=== PATIENT | male | born 1970 | race Caucasian/White ===

== ENCOUNTER → 2017-10-31 | Outpatient (CLI) | payer OTHER | END | disposition home or self-care (01) | LOC: RAD 15:53 | PROVIDERS: ATTEND Orthopaedic Surgery | DX: S72.21XD Displaced subtrochanteric fracture of right femur, subsequent encounter for closed fracture with routine healing (principal); X58.XXXD Exposure to other specified factors, subsequent encounter ==

== ENCOUNTER 2017-12-30 06:52 | Inpatient (IN) | payer OTHER ==
[~2017-12-30] VITALS: Ht 167.6 cm; Wt 123.0 kg
[2017-12-30] MEDS ORDERED: OXYC5CAP2 PO (07:30)
[2017-12-30] MEDS ORDERED: ASPI-650 PO (07:30)
[2017-12-30] MEDS ORDERED: PREG100C PO (07:30)
[2017-12-30] MEDS ORDERED: LISI-170 PO (07:30)
[2017-12-30] MEDS ORDERED: OXYC10TA6 PO (07:30)
[2017-12-30 07:31] VITALS: BP 155/97
[2017-12-30] MEDS ORDERED: LACTATED RINGERS 1,000 ML IV SCH (07:32)
[2017-12-30] MEDS ORDERED: MIDAZOLAM 1 MG/ML, 2ML ONE (07:37)
[2017-12-30] MEDS ORDERED: FENTANYL PF 250 MCG/5ML ONE (07:37)
[2017-12-30] MEDS ORDERED: ACETAMINOPHEN 500 MG TABLET PO ONE (08:00)
[2017-12-30] MEDS ORDERED: GABAPENTIN 300 MG CAPSULE PO ONE (08:00)
[2017-12-30] MEDS ORDERED: BUPIVACAINE/PF-EPI 0.5% 1:200K ONE (08:04)
[2017-12-30] MEDS ORDERED: SCOPOLAMINE PATCH, 1.5MG PATCH.TD72 TD ONE ×2 (08:10)
[2017-12-30] MEDS ORDERED: GABAPENTIN 300 MG CAPSULE ONE (08:10)
[2017-12-30] MEDS ORDERED: OxyconTIN ER 10 MG TAB.ER ONE ×2 (08:10)
[2017-12-30] MEDS ORDERED: ACETAMINOPHEN 500 MG TABLET ONE (08:10)
[2017-12-30] MEDS ORDERED: FAMOTIDINE 20 MG TABLET ONE ×2 (08:10)
[2017-12-30] MEDS ORDERED: CLINDAMYCIN 150 MG/ML, 6ML ONE (08:38)
[2017-12-30 08:46] LABS: ALBUMIN 3.6 g/dL (3.4-5.0); ANION GAP 5 mmol/L (5-15); CHLORIDE 107 mmol/L (98-107)
[2017-12-30 08:50] LABS: ALANINE AMINOTRANSFERASE 40 U/L (12-78); ALKALINE PHOSPHATASE 112 U/L (45-117); BILIRUBIN,TOTAL 0.8 mg/dL (0.2-1.0); CREATININE 0.92 mg/dL (0.7-1.3); TOTAL PROTEIN 7.2 g/dL (6.4-8.2)
[2017-12-30] MEDS ORDERED: ROCURONIUM 10MG/ML,5ML ONE (09:22)
[2017-12-30] MEDS ORDERED: METOCLOPRAMIDE 5 MG/ML, 2ML ONE (09:22)
[2017-12-30] MEDS ORDERED: SUCCINYLCHOLINE 20 MG/ML, 10ML ONE (09:22)
[2017-12-30] MEDS ORDERED: CEFAZOLIN 1,000 MG ONE (10:03)
[2017-12-30] MEDS ORDERED: DEXAMETHASONE 4 MG/ML, 1ML ONE (10:03)
[2017-12-30] MEDS ORDERED: PROPOFOL 10 MG/ML, 20ML ONE (10:03)
[2017-12-30] MEDS ORDERED: LIDOCAINE-MPF 2% ,5ML ONE (10:03)
[2017-12-30] MEDS ORDERED: ONDANSETRON 2MG/ML, 2ML ONE (10:03)
[2017-12-30] MEDS ORDERED: PROPOFOL 50 ML ONE (10:03)
[2017-12-30] MEDS ORDERED: BUPIVACAINE/PF 0.5% ONE (10:03)
[2017-12-30] MEDS ORDERED: LIDOCAINE GEL 2%, 5ML ONE (10:14)
[2017-12-30] MEDS ORDERED: PROMETHAZINE 25 MG/ML, 1ML IV PRN (10:30)
[2017-12-30] MEDS ORDERED: FENTANYL PF 100 MCG/2ML IV PRN (10:30)
[2017-12-30] MEDS ORDERED: ALBUTEROL/IPRATROPIUM 2.5MG/0.5MG, 3 ML NPPB PRN (10:30)
[2017-12-30] MEDS ORDERED: HYDROmorphone 1 MG/ML, 1ML IV PRN (10:30)
[2017-12-30] MEDS ORDERED: ONDANSETRON 2MG/ML, 2ML IV PRN ×2 (10:30→12:30)
[2017-12-30] MEDS ORDERED: MIDAZOLAM 1 MG/ML, 2ML IV PRN (10:30)
[2017-12-30] MEDS ORDERED: LABETALOL 5MG/ML, 20ML IV PRN (10:30)
[2017-12-30] MEDS ORDERED: OXYcodone 5 MG/5 ML ORAL.SOL UDC PO PRN (10:30)
[2017-12-30] MEDS ORDERED: MEPERIDINE/PF 25MG/0.5ML IVPush PRN (10:30)
[2017-12-30] MEDS ORDERED: EPHEDRINE 50 MG/ML, 1ML IM PRN (10:30)
[2017-12-30 12:08] VITALS: BP 122/76
[2017-12-30] MEDS ORDERED: HYDROmorphone 1 MG/ML, 1ML IM PRN (12:30)
[2017-12-30] MEDS ORDERED: PROMETHAZINE 25 MG/ML, 1ML IM PRN (12:30)
[2017-12-30 15:35] VITALS: BP 121/74
[2017-12-30] MEDS: KETOROLAC 30 MG/1 ML IV SCH ×2 (15:36→23:38)
[2017-12-30] MEDS: OXYcodone/APAP 5/325MG TABLET PO PRN ×3 (17:19→22:03)
[2017-12-30] MEDS: CEFAZOLIN PMX 1GM/50ML 50 ML IV SCH (17:20)
[2017-12-30 20:28] VITALS: BP 102/57
[2017-12-30] MEDS: PREGABALIN 100 MG CAPSULE PO SCH (20:43)
[2017-12-30] MEDS ORDERED: ZOLPIDEM 10MG TABLET PO PRN (21:30)
[2017-12-31 00:02] VITALS: BP 111/66
[2017-12-31] MEDS: CEFAZOLIN PMX 1GM/50ML 50 ML IV SCH (01:17)
[2017-12-31 04:23] VITALS: BP 114/68
[2017-12-31] MEDS ORDERED: ENOXAPARIN 40 MG/0.4 ML SQ SCH (06:00)
[2017-12-31] MEDS: OXYcodone/APAP 5/325MG TABLET PO PRN ×2 (06:14→09:55)
[2017-12-31 07:02] VITALS: BP 111/63
[2017-12-31] MEDS: KETOROLAC 30 MG/1 ML IV SCH (07:14)
[2017-12-31] MEDS: PREGABALIN 100 MG CAPSULE PO SCH (09:00)
[2017-12-31] MEDS ORDERED: LISINOPRIL 20 MG TABLET PO SCH (09:00)
[2017-12-31] MEDS ORDERED: ASPIRIN 325 MG TABLET PO SCH (09:00)
== END 2017-12-31 10:30 | disposition home or self-care (01) | DRG 480 ==
LOC: OUT 06:52 → 4NOR 12:02 → OUT 12:59 → DCLOUNGE 12-31 10:14
PROVIDERS: ADMIT Orthopaedic Surgery; ATTEND Orthopaedic Surgery
PROC: 0QP604Z Removal of Internal Fixation Device from Right Upper Femur, Open Approach (ICD-10-PCS; 2017-12-30)
PROC: 0QH606Z Insertion of Intramedullary Internal Fixation Device into Right Upper Femur, Open Approach (ICD-10-PCS; principal; 2017-12-30 09:00)
DX: S72.001A Fracture of unspecified part of neck of right femur, initial encounter for closed fracture (principal); E43 Unspecified severe protein-calorie malnutrition; V29.88XA Motorcycle rider (driver) (passenger) injured in other specified transport accidents, initial encounter; Y93.89 Activity, other specified; Y92.89 Other specified places as the place of occurrence of the external cause; Y99.8 Other external cause status; I10 Essential (primary) hypertension; Z88.0 Allergy status to penicillin; Z79.82 Long term (current) use of aspirin; Z79.899 Other long term (current) drug therapy
CPT/HCPCS: 36415; 73552; 76001; S0077; 80053; 87070; 87075; 87176; 87205; C1713; J0690; J1100; J1650; J1885; J2250; J2405; J2704; J3010; J3490; J0330; J2765; J7120